=== PATIENT | female | born 1970 | race Caucasian/White ===

== ENCOUNTER → 2017-12-03 | Outpatient (CLI) | payer BC ==
[2017-12-03 10:44] LABS: T4, Free (Free Thyroxine) 3.93 ng/dL (0.78-2.19)
--- NOTE | 2017-12-03 13:52 | US ---
EXAMINATION TYPE: US thyroid st tissue head/neck DATE OF EXAM: 12/03/2017 COMPARISON: NONE CLINICAL HISTORY: E05.90 THYROTOXIXOSIS. Abnormal labs, pt states no known thyroid issues GLAND SIZE: Right Lobe: 6.7 x 2.7 x 3.0 cm Overall Parenchyma: heterogenous Left Lobe: 5.7 x 2.5 x 2.3 cm Overall Parenchyma: heterogeneous Isthmus Thickness: 1.0 cm Bilateral neck scanned, no evidence of lymphadenopathy. Bilateral, enlarged, heterogeneous thyroid wi th increased vascularity IMPRESSION: 1. Enlarged thyroid with minimal heterogeneity
== END | disposition home or self-care (01) ==
LOC: LABWHC1 09:26
PROVIDERS: ATTEND Internal Medicine Endocrinology, Diabetes & Metabolism
DX: E04.9 Nontoxic goiter, unspecified (principal); E05.90 Thyrotoxicosis, unspecified without thyrotoxic crisis or storm
CPT/HCPCS: 36415; 76536; 84439; 84443; 84445; 84480

== ENCOUNTER → 2018-03-24 | Outpatient (CLI) | payer BC ==
[2018-03-24 13:42] LABS: T4, Free (Free Thyroxine) 0.5 ng/dL (0.78-2.19)
== END | disposition home or self-care (01) ==
LOC: LABWHC1 11:49
PROVIDERS: ATTEND Internal Medicine Endocrinology, Diabetes & Metabolism
DX: E05.90 Thyrotoxicosis, unspecified without thyrotoxic crisis or storm (principal)
CPT/HCPCS: 36415; 84439; 84443; 84480